=== PATIENT | male | born 1945 | race Two or more races ===

== ENCOUNTER → 2025-02-21 | Emergency (ER) | payer OTHER ==
[~2025-02-21] VITALS: Ht 177.8 cm; Wt 65.8 kg
[~2025-02-21] MED LIST: MECLIZINE HCL 25 MG TABLET PO ONE
== END | disposition left against medical advice (07) ==
LOC: ER 15:02
DX: R42 Dizziness and giddiness (principal); I10 Essential (primary) hypertension